=== PATIENT | male | born 1980 | race Caucasian/White ===

== ENCOUNTER 2016-09-06 07:37 | Day surgery (SDC) | payer OTHER, BC ==
[2016-09-06] MEDS ORDERED: Sodium Chloride 0.9% 5 ML Syringe FLUSH PRN (08:00)
[2016-09-06] MEDS ORDERED: Lactated Ringers 1,000 ML IV SCH (08:00)
[2016-09-06] MEDS ORDERED: Bupivacaine 0.5% 30 ML SDV ONE (09:00)
[2016-09-06] MEDS ORDERED: Propofol 200 MG/20 ML SDV ONE ×2 (09:04→09:09)
[2016-09-06] MEDS ORDERED: Midazolam 1 MG/ML 2 ML SDV ONE ×3 (09:04→09:21)
[2016-09-06] MEDS ORDERED: fentaNYL 100 MCG/2 ML SDV ONE ×2 (09:04→09:09)
[2016-09-06] MEDS ORDERED: Bupivacaine 0.5% 30 ML SDV INFILT ONE (09:36)
--- NOTE | 2016-09-06 09:51 | PCM.OPNOTE ---
- General Post-Op/Procedure Note Date of Surgery/Procedure: 09/06/16 Operative Procedure(s): Right carpal tunnel decompression Findings: moderate severe compression of the right median nerve by the transverse carpal ligament. Pre Op Diagnosis: Right carpal tunnel syndrome Post-Op Diagnosis: As above Primary Surgeon: Misael Lance Complications: None Condition: Good Free Text/Narrative:: INFORMED CONSENT: Patient is here today for elective right carpal tunnel compression. All aspects of this procedure have been discussed with the patient. All possible complications also, including possibility of , infection , pain, systems numbness recurrent symptoms, failure of the operation to relieve the symptoms and unknown complications. Anesthetic complications were handled by anesthesia department. The patient understands fully well. Patient did not have any further questions for me at the end of my interview. The patient wishes for me to proceed. PROCEDURE: Patient was kept in the supine position and the satisfactory monitored anesthesia care was administered. The ____ arm was thoroughly prepped and draped in the usual fashion. The tourniquet was placed to the right upper arm and approximately 3 cc of Xylocaine 1% plain was instilled into the site of the incision slightly distal to the distal transverse wrist crease. A vertical incision was made in the palm distal to the distal wrist crease. The skin incision was deepened through the subcutaneous tissue, the palmar aponeurosis was incised and then we came down upon the transverse carpal ligament, which was opened along the line of the skin incision. Extreme care was taken to protect the median nerve below. Careful neurolysis was performed meticulously. Approximately 2 cc of Marcaine 0.5% was instilled into the wound and skin was closed using mattress sutures with 3.0 Nylon. The tourniquet was released. A sterile pressure dressing was applied. The patient tolerated the procedure well and was transferred to the recovery room in excellent condition.
[2016-09-06 10:41] VITALS: BP 117/81
== END 2016-09-06 10:35 | disposition home or self-care (01) ==
LOC: KA.SDS 07:37
PROVIDERS: ATTEND Family Medicine
DX: G56.01 Carpal tunnel syndrome, right upper limb (principal); F17.210 Nicotine dependence, cigarettes, uncomplicated; Z79.899 Other long term (current) drug therapy
CPT/HCPCS: 64721; J2250; J2704; J3010; J7120